=== PATIENT | male | born 1945 | race Two or more races ===

== ENCOUNTER 2018-02-15 07:59 | Outpatient (CLI) | payer OTHER | END 2018-02-15 08:02 | disposition home or self-care (01) | LOC: MRI 07:59 | DX: K86.2 Cyst of pancreas (principal) | CPT/HCPCS: 74183; A9579; 74182 ==

== ENCOUNTER 2019-03-29 08:22 | Outpatient (CLI) | payer OTHER | END 2019-03-29 08:33 | disposition home or self-care (01) | LOC: MRI 08:22 | DX: K85.90 Acute pancreatitis without necrosis or infection, unspecified (principal) | CPT/HCPCS: 74183; A9575 ==